=== PATIENT | female | born 1985 | race Caucasian/White ===

== ENCOUNTER → 2017-05-13 | Outpatient (CLI) | payer OTHER ==
[~2017-05-13] MED LIST: IOPAMIDOL (ISOVUE-300) 100 ML BTL ONE
== END ==
LOC: CIMAGING 08:33 → MERGE 08:33
PROVIDERS: ATTEND Physician Assistant
DX: Z87.440 Personal history of urinary (tract) infections (principal); N81.4 Uterovaginal prolapse, unspecified; K62.3 Rectal prolapse; N13.5 Crossing vessel and stricture of ureter without hydronephrosis; E27.9 Disorder of adrenal gland, unspecified
CPT/HCPCS: 74178-PO; Q9967

== ENCOUNTER → 2018-12-24 | Outpatient (CLI) | payer OTHER | LOC: CIMAGING 08:57 | PROVIDERS: ATTEND Physician Assistant | DX: R10.84 Generalized abdominal pain (principal); R11.2 Nausea with vomiting, unspecified | CPT/HCPCS: 76700-PO ==